=== PATIENT | female | born 1975 | race Caucasian/White ===

== ENCOUNTER → 2017-01-20 | Outpatient (CLI) | payer BC ==
[~2017-01-20] MED LIST: CYMBALTA30 MG PO; MACROBID 100MG100 MG PO; NOMEDS *; PRAVASTATIN 20M20 MG PO; ZOFRAN4 MG PO
--- NOTE | 2017-01-24 08:12 | RADIOLOGY REPORT PS360 ---
On DIG MAMM-SCREEN HILDA W/CAD CAD Screening ORDERING PHYSICIAN : Gary Bautista MD PATIENT AGE: 41 years GENDER: Female COMPARISON: Previous mammograms: January 2015 Previous ultrasound left breast from 07/26/2015; 02/05/2015; 12/08/2012 INDICATION: Routine screening TECHNIQUE: Standard CC and MLO images were obtained. R2 CAD reviewed. X-ray cc views both breast FINDINGS: Asymmetric breast . Greater density is seen at the upper outer quadrant left breast than right. RIGHT BREAST: No significant new findings versus 2015 and prior studies. LEFT BREAST: Asymmetric area of breast tissue at the superior left breast towards 12:00 again noted and appears stable. No additional findings lateral breast. Asymmetric density inferior left breast is similar to previous studies Last years ultrasound noted a cystic area with septation and some internal density for which aspiration was recommended. Is not readily apparent on plain film but given that it was described as a suspicious finding I would suggest a follow-up ultrasound to further evaluate left breast. IMPRESSION: ------- 1. Dense breast bilaterally with no significant new findings by mammography. 2. Addendum: Last years July 2015 ultrasound noted a 1 cm complex cystic area at 3 o'clock position which had increased slightly size since previous studies -for which aspiration was recommended Febr 2017. Most likely is a benign feature but suggests follow-up ultrasound to further evaluate and follow this feature, unless it was aspirated at another facility in the interval.. BI-RADS CATEGORY: 2_Benign- stable asymmetry on today's on today's screening mammogram RECOMMENDED FOLLOWUP: Ultrasound left breast suggested follow previously noted most likely benign complex cyst.; After that resume annual bilateral mammogram (A letter has been sent to the patient regarding results of the study.)
== END ==
LOC: RAD 09:50
DX: Z12.31 Encounter for screening mammogram for malignant neoplasm of breast (principal)
CPT/HCPCS: G0202